=== PATIENT | male | born 1980 | race Caucasian/White ===

== ENCOUNTER 2017-02-24 22:48 | Emergency (ER) | payer SELFPAY | END 2017-02-25 01:57 | disposition home or self-care (01) | LOC: ER 22:48 | DX: S86.912A Strain of unspecified muscle(s) and tendon(s) at lower leg level, left leg, initial encounter (principal); F43.10 Post-traumatic stress disorder, unspecified; Z91.013 Allergy to seafood; Z88.5 Allergy status to narcotic agent; Z88.8 Allergy status to other drugs, medicaments and biological substances; V98.8XXA Other specified transport accidents, initial encounter | CPT/HCPCS: 73560-LT; 99283 ==